=== PATIENT | female | born 1985 | race Caucasian/White ===

== ENCOUNTER → 2022-02-06 | Outpatient (CLI) | payer OTHER ==
[~2022-02-06] MED LIST: ADDERALL 30 MG30 MG PO; COLCHICINE0.6 MG PO; HYDROXYZINE HCL10 MG PO; METFORMIN HCL500 M2 PO; OZEMPIC1 MG/0.71 SQ; PAXIL40 MG PO; TOLTERODINE TART4 MG PO
[2022-02-06 14:32] LABS: BUN/CREATININE RATIO 13 (0-10)
== END ==
LOC: LAB 13:49
PROVIDERS: Orthopaedic Surgery
DX: Z01.812 Encounter for preprocedural laboratory examination (principal)
CPT/HCPCS: 36415; 80048; 86850; 86900; 86901

== ENCOUNTER 2022-02-07 08:51 | Inpatient (IN) | payer OTHER ==
[~2022-02-07] VITALS: Ht 170.2 cm; Wt 124.7 kg
[~2022-02-07 08:51] MED LIST changes: -HYDROXYZINE HCL10 MG PO
[2022-02-07 15:07] LABS: HEMOGLOBIN 12.4 gm/dl (12.3-15.3); RED BLOOD COUNT 4.45 M/UL (4.00-5.10); WHITE BLOOD COUNT 7.8 K/UL (4.5-11.0)
[2022-02-07 15:27] LABS: BUN/CREATININE RATIO 16 (0-10)
[2022-02-07] MEDS ORDERED: HYDROXYZINE HCL10 MG PO (18:29)
[2022-02-08 05:15] LABS: HEMOGLOBIN 12.2 gm/dl (12.3-15.3); RED BLOOD COUNT 4.33 M/UL (4.00-5.10)
[2022-02-08 05:27] LABS: BUN/CREATININE RATIO 15 (0-10)
== END 2022-02-08 12:29 | disposition home or self-care (01) | DRG 472 ==
LOC: OR 08:51 → CDU 17:00 → CCU 17:00
PROVIDERS: ADMIT Orthopaedic Surgery
PROC: 4A11X4G Monitoring of Peripheral Nervous Electrical Activity, Intraoperative, External Approach (ICD-10-PCS; 2022-02-07)
PROC: 0RG10A0 Fusion of Cervical Vertebral Joint with Interbody Fusion Device, Anterior Approach, Anterior Column, Open Approach (ICD-10-PCS; principal; 2022-02-07 11:15)
PROC: 0RB30ZZ Excision of Cervical Vertebral Disc, Open Approach (ICD-10-PCS; 2022-02-07 11:15)
DX: M50.122 Cervical disc disorder at C5-C6 level with radiculopathy (principal); M50.022 Cervical disc disorder at C5-C6 level with myelopathy; E78.5 Hyperlipidemia, unspecified; E03.9 Hypothyroidism, unspecified; J44.9 Chronic obstructive pulmonary disease, unspecified; M10.9 Gout, unspecified; J45.909 Unspecified asthma, uncomplicated; F41.9 Anxiety disorder, unspecified; F32.A Depression, unspecified; K76.0 Fatty (change of) liver, not elsewhere classified; E06.3 Autoimmune thyroiditis; E11.40 Type 2 diabetes mellitus with diabetic neuropathy, unspecified; Z82.49 Family history of ischemic heart disease and other diseases of the circulatory system; Z88.8 Allergy status to other drugs, medicaments and biological substances; Z88.0 Allergy status to penicillin; Z90.49 Acquired absence of other specified parts of digestive tract; Z79.84 Long term (current) use of oral hypoglycemic drugs; Z79.899 Other long term (current) drug therapy
CPT/HCPCS: 36415; 72040; 76000; 80048; 81001; 82962; 84703; 85025; 85027; 87086; 97161; 97166; C1713; J1040; J1170; J2001; J2250; J2370; J2704; J3010; J3370; J3475; J7070